=== PATIENT | male | born 1980 | race Caucasian/White ===

== ENCOUNTER 2016-07-20 19:11 | Emergency (ER) | payer SELFPAY ==
[2016-07-20 19:39] VITALS: BP 110/76
[2016-07-20] MEDS ORDERED: Tetanus-Diphtheria* SYRINGE IM ONE (19:40)
--- NOTE | 2016-07-20 19:46 | UC ---
Laceration HPI - HPI Summary HPI Summary: While using edge grinder machine at home tonight, edge grinder machine slipped and cut L hand on 5th finger and at base of finger. - History Of Current Complaint Chief Complaint: UCLaceration Stated Complaint: HAND LAC Time Seen by Provider: 07/20/16 19:33 Hx Obtained From: Patient Laceration Location: Hand Mechanism Of Injury: Sharp Trauma Severity: Mild - Allergies/Home Medications Allergies/Adverse Reactions: Allergies Allergy/AdvReac Type Severity Reaction Status Date / Time No Known Allergies Allergy Verified 07/20/16 19:37 Home Medications: Home Medications NK [No Home Medications Reported] 07/20/16 [History Confirmed 07/20/16] PMH/Surg Hx/FS Hx/Imm Hx Previously Healthy: Yes Cardiovascular History Of: Denies: Cardiac Disorders, Hypertension - Surgical History Surgical History: None - Family History Known Family History: Negative: Renal Disease - Social History Occupation: Employed Full-time Alcohol Use: None Substance Use Type: None Smoking Status (MU): Never Smoked Tobacco Review of Systems Constitutional: Negative Skin: Other - L hand lac and abrasions Eyes: Negative ENT: Negative Respiratory: Negative Cardiovascular: Negative Gastrointestinal: Negative Genitourinary: Negative Motor: Negative Neurovascular: Negative Musculoskeletal: Negative Neurological: Negative Psychological: Negative All Other Systems Reviewed And Are Negative: Yes Physical Exam Triage Information Reviewed: Yes Appearance: Well-Appearing, No Pain Distress, Well-Nourished Vital Signs: Initial Vital Signs Temp 97.0 F 07/20/16 19:34 Pulse 65 07/20/16 19:34 Resp 16 07/20/16 19:34 BP 110/76 07/20/16 19:34 Pulse Ox 100 07/20/16 19:34 Vital Signs Reviewed: Yes Eye Exam: Normal Eyes: Positive: Conjunctiva Clear ENT Exam: Normal ENT: Positive: Normal ENT inspection, Hearing grossly normal, Pharynx normal, TMs normal Dental Exam: Normal Neck exam: Normal Neck: Positive: Supple, Nontender, No Lymphadenopathy Respiratory Exam: Normal Respiratory: Positive: Chest non-tender, Lungs clear, Normal breath sounds, No respiratory distress, No accessory muscle use, Respiratory distress Cardiovascular Exam: Normal Cardiovascular: Positive: RRR, No Murmur Abdominal Exam: Normal Musculoskeletal Exam: Normal Neurological Exam: Normal Psychological Exam: Normal Skin Exam: Other - linear abrasions to L 5th finger at PIP and DIP joints on palmar aspect, 1.25cm laceration L palm at base of 5th finger Laceration Repair - Laceration Repair 1 Description: Irregular Laceration Size After Repair: Length (cm) - 1.5, Width (mm) - 0, Depth (mm) - 0 Modified For Repair: No Type Injection: Local Anesthesia Used: 1.0% Lido - 2mL Cleansing Completed Via Routine Prep: Yes Irrigation With Pressure Irrigation Device: Yes Closure Material: Sutures Closure Method: Single Layer Suture Of: Skin - #3 5-0 nylon Suture Type: Nylon Laceration Course/Dx - Differential Dx - Laceration/Wound Provider Diagnoses: abrasions to L 5th finger. laceration to L 5th finger Discharge - Discharge Plan Condition: Stable Disposition: HOME Patient Education Materials: Finger Laceration (ED) Additional Instructions: When you return to work, please keep the are well padded and protected from rubbing or water/solvent exposure. Come back in 9 days for suture removal. Come back sooner if you have redness, drainage, or other signs of infection.
[2016-07-20] MEDS ORDERED: Lidocaine 1% MPF* 2 ML VIAL INJ ONE (19:55)
[2016-07-20] MEDS ORDERED: Tetanus-Diptheria Toxoids* 0.5 ML SYRINGE ONE (20:13)
--- NOTE | 2016-07-21 17:56 | UC ---
Progress - Progress Note Progress Note: progress example test
== END 2016-07-20 20:43 | disposition home or self-care (01) ==
LOC: UCEAST 19:11
DX: S61.217A Laceration without foreign body of left little finger without damage to nail, initial encounter (principal); S60.417A Abrasion of left little finger, initial encounter; W29.8XXA Contact with other powered hand tools and household machinery, initial encounter; Y93.9 Activity, unspecified; Y92.009 Unspecified place in unspecified non-institutional (private) residence as the place of occurrence of the external cause
CPT/HCPCS: 12001; 96372; 99201; G0463

== ENCOUNTER 2016-09-12 23:14 | Emergency (ER) | payer MEDICAID ==
[2016-09-12] MEDS ORDERED: methylPREDNISolone 125 MG* 2 ML VIAL IV ONE ×2 (23:24)
[2016-09-12] MEDS ORDERED: NS 0.9% 1000 ML* 1,000 ML IV ONE ×2 (23:24)
[2016-09-12] MEDS ORDERED: diPHENhydraMINE IV* 50 MG/ML 1 ml VIAL (BENADRYL) IV ONE ×2 (23:24)
[2016-09-12] MEDS ORDERED: EPINEPHrine AMP 1 MG/ML IM ONE ×2 (23:24)
[2016-09-12] MEDS ORDERED: Famotidine IV* 10 MG/ML 2 ML (20 mg) IV ONE ×2 (23:24)
[2016-09-12] MEDS ORDERED: Famotidine IV* 10 MG/ML 2 ML (20 mg) ONE ×2 (23:52)
--- NOTE | 2016-09-12 23:55 | ED ---
Kamini Angel Salem, scribed for Pranav Payne MD on 09/12/16 at 2340 . Allergic Reaction/Systemic - HPI Summary HPI Summary: Patient is a 36 y/o M who presents to the ED with allergic reaction to bee sting on left forearm since 40 minutes ago. He states that 20 minutes after being stung he experienced throat tightening and SOB. He reports pain to left forearm, but denies pruritus, CP, or cold like sx. He did not receive an epinephrine or any treatment [employer]. Pt states that he was only stung once. He has a hx of allergy to bee sting. Pt denies tobacco or EtOH use. - History of Current Complaint Chief Complaint: EDAllergicReaction Time Seen by Provider: 09/12/16 23:24 Hx Obtained From: Patient Onset/Duration: Gradual Onset, Started minutes ago, Still Present Timing: Constant, Lasting Minutes Severity Initially: Moderate Severity Currently: Moderate Pain Intensity: 0 Pain Scale Used: 0-10 Numeric Location: Discrete @ - LUE. Character: Swelling Aggravating Factor(s): Nothing Alleviating Factor(s): Nothing Associated Signs And Symptoms: Positive: Throat Tightening, Other: - SOB. - Allergies/Home Medications Allergies/Adverse Reactions: Allergies Allergy/AdvReac Type Severity Reaction Status Date / Time Bee Venom Allergy Intermediate Swelling Verified 09/12/16 23:29 Of Face,Lips,& Throat PMH/Surg Hx/FS Hx/Imm Hx Previously Healthy: Yes Cardiovascular History: Denies: Hx Hypertension Infectious Disease History: No Infectious Disease History: Denies: History Other Infectious Disease, Traveled Outside the [place] in Last 30 Days - Family History Known Family History: Negative: Hypertension, Renal Disease - Social History Alcohol Use: None Hx Substance Use: No Substance Use Type: Reports: None Hx Tobacco Use: No Smoking Status (MU): Never Smoked Tobacco Review of Systems Positive: Other - Throat tightening. Negative: Chest Pain Positive: Shortness Of Breath, Other - No cold like sx. Positive: Other - Pain to left forearm. Skin: Other - No pruritus. All Other Systems Reviewed And Are Negative: Yes Physical Exam - Summary Physical Exam Summary: The patient is well-nourished in no acute distress and in no acute pain. The skin is warm and dry and skin color reflects adequate perfusion. Large area of erythema, volar surface. Appears like localized allergic reaction. HEENT: The head is normocephalic and atraumatic. The pupils are equal and reactive. The conjunctivae are clear and without drainage. Nares are patent and without drainage. Mouth reveals moist mucous membranes and the throat is without erythema and exudate. The external ears are intact. The ear canals are patent and without drainage. The tympanic membranes are intact. Neck is supple with full range of motion and non-tender. There are no carotid bruits. There is no neck vein distension. Respiratory: Chest is non-tender. Lungs are clear to auscultation and breath sounds are symmetrical and equal. No stridor or wheezing. Cardiovascular: Heart is regular rate and rhythm. There is no murmur or rales or rub auscultated. T Abdomen: The abdomen is soft and non-tender. Musculoskeletal: There is no back pain noted. Extremities are non-tender with full range of motion. There is good capillary refill. Neurological: Patient is alert and oriented to person, place and time. The patient has symmetrical motor strength in all four extremities. Psychiatric: The patient has an appropriate affect and does not exhibit any anxiety or depression. Triage Information Reviewed: Yes Vital Signs On Initial Exam: Initial Vitals Temp Pulse Resp BP Pulse Ox 97.5 F 60 16 113/72 100 09/12/16 23:16 09/12/16 23:16 09/12/16 23:16 09/12/16 23:16 09/12/16 23:16 Vital Signs Reviewed: Yes Diagnostics - Vital Signs Vital Signs Temp Pulse Resp BP Pulse Ox 09/12/16 23:16 97.5 F 60 16 113/72 100 - Laboratory Lab Statement: Any lab studies that have been ordered have been reviewed, and results considered in the medical decision making process. Allergic Reaction Course/Dx - Course Course Of Treatment: 36 y/o M presents with allergic reaction to bee sting on left forearm since 40 minutes ago. He reports throat tightening, SOB, pain to left forearm, but denies pruritus, CP, or cold like sx. Pt received epinephrine , Pepcid, fluids, Benadryl, and Solu-MEDROL in the ED course. Pt will be observed and then DCd with instructions. - Diagnoses Differential Diagnosis/HQI/PQRI: Positive: Anaphylaxis, Local Allergic Reaction Provider Diagnoses: Allergic reaction to bee sting Discharge - Discharge Plan Condition: Stable Disposition: HOME Prescriptions: Epinephrine [Epipen 2-Immanuel] 0.3 mg IM ONCE #1 inj Famotidine TAB 40 MG(NF) [Pepcid TAB 40 MG(NF)] 40 mg PO DAILY #30 tab diPHENhydraMINE PO* [Benadryl PO 50 MG CAP*] 50 mg PO Q6H PRN #30 cap PRN Reason: allergic reaction predniSONE TAB* [Deltasone TAB*] 60 mg PO DAILY #15 tab Patient Education Materials: General Allergic Reaction (ED) Referrals: [facility] PHYSICIAN REFERRAL [Outside] Additional Instructions: Please follow up with [facility] referral. The documentation as recorded by the Kamini roman Salem accurately reflects the service I personally performed and the decisions made by , Pranav Payne MD.
[2016-09-13 01:58] VITALS: BP 122/69
== END 2016-09-13 01:55 | disposition home or self-care (01) ==
LOC: ED 23:14
DX: T63.441A Toxic effect of venom of bees, accidental (unintentional), initial encounter (principal); R06.02 Shortness of breath; M79.632 Pain in left forearm; Y92.9 Unspecified place or not applicable
CPT/HCPCS: 96374; 96375; 99282; J0171; J1200; J2930

== ENCOUNTER 2017-09-15 20:05 | Emergency (ER) | payer BC, MEDICAID ==
[2017-09-15 20:23] VITALS: BP 128/63
[2017-09-15] MEDS ORDERED: NS 0.9% 1000 ML* 1,000 ML BOLUS ONE (20:33)
[2017-09-15] MEDS ORDERED: Ondansetron INJ* 2 MG/ML VIAL IV ONE (20:33)
--- NOTE | 2017-09-15 20:42 | UC ---
Abdominal Pain Male HPI - HPI Summary HPI Summary: 37 yo male with the onset of abd pain 5 days ago diffuse and crampy nausea but no vomiting soft stool 2-3 days ago developed fever and chills myalgias/headache anorexia decreased UOP onset while working at [employer] - History of Current Complaint Chief Complaint: UCAbdominalPain Stated Complaint: ABD PAIN,FEVER,CHILLS Time Seen by Provider: 09/15/17 20:25 Hx Obtained From: Patient Onset/Duration: Gradual Onset, Lasting Days Timing: Constant Severity Initially: Mild Severity Currently: Moderate Pain Intensity: 7 Pain Scale Used: 0-10 Numeric Location: Diffuse Character: Colicy, Cramping Aggravating Factor(s): Nothing Alleviating Factor(s): Nothing Associated Signs And Symptoms: Positive: Fever, Nausea - Allergies/Home Medications Allergies/Adverse Reactions: Allergies Allergy/AdvReac Type Severity Reaction Status Date / Time bee venom protein (honey bee) Allergy Swelling Verified 09/15/17 20:24 gluten Allergy GI Upset Verified 09/15/17 20:24 Pertussis Vaccines Allergy Rash Verified 09/15/17 20:24 Home Medications: Home Medications Ibuprofen [Advil] 800 mg PO Q8H PRN 09/15/17 [History Confirmed 09/15/17] Sennosides [Ex-Lax] 15 mg PO DAILY PRN 09/15/17 [History Confirmed 09/15/17] PMH/Surg Hx/FS Hx/Imm Hx Previously Healthy: Yes - Surgical History Surgical History: None Surgery Procedure, Year, and Place: R knee pattelar realignment 2004 - Family History Known Family History: Negative: Hypertension, Renal Disease - Social History Alcohol Use: None Substance Use Type: None Smoking Status (MU): Never Smoked Tobacco Review of Systems Constitutional: Fever, Chills Skin: Negative Eyes: Negative ENT: Negative Respiratory: Negative Cardiovascular: Negative Gastrointestinal: Nausea Genitourinary: Negative Motor: Negative Neurovascular: Negative Musculoskeletal: Arthralgia Neurological: Headache Psychological: Negative Is Patient Immunocompromised?: No All Other Systems Reviewed And Are Negative: Yes Physical Exam Triage Information Reviewed: Yes Appearance: Well-Appearing, No Pain Distress, Well-Nourished Vital Signs: Initial Vital Signs Temp 102.8 F 09/15/17 20:14 Pulse 117 09/15/17 20:14 Resp 18 09/15/17 20:14 BP 128/63 09/15/17 20:14 Pulse Ox 100 09/15/17 20:14 Vital Signs Reviewed: Yes Eyes: Negative: Conjunctiva Clear ENT: Positive: Hearing grossly normal, Pharynx normal. Negative: Nasal congestion, Nasal drainage, Tonsillar exudate, Trismus, Hoarse voice, Uvula midline Neck: Positive: Supple, Nontender, No Lymphadenopathy Respiratory: Positive: Lungs clear, Normal breath sounds, No respiratory distress Cardiovascular: Positive: RRR, No Murmur Abdomen Description: Negative: Nontender - diffusely tender, CVA Tenderness (R) , CVA Tenderness (L), Distended, Guarding, Hepatomegaly, Peritoneal Signs, Pulsatile Mass, Splenomegaly Bowel Sounds: Positive: Present Musculoskeletal: Positive: ROM Intact, No Edema Neurological: Positive: Alert Psychological Exam: Normal Skin Exam: Normal Re-Evaluation - Re-Evaluation First Eval Re-Evaluation Time: 21:30 Change: Improved Comment: still diffusely tender, more so RLQ Abd Pain Male Course/Dx - Differential Dx/Clinical Impression Provider Diagnoses: RLQ abd pain Discharge - Sign-Out/Discharge Documenting (check all that apply): Discharge/Admit/Transfer - Discharge Plan Condition: Stable Disposition: TRANS HIGHER LVL OF CARE FAC Patient Education Materials: Abdominal Pain (ED) Forms: *Work Release Referrals: No Primary Care Phys,NOPCP [Primary Care Provider] - Additional Instructions: I suggest you go to the ER straight from here for evaluation of your abdominal pain and fever You are most tender over your appendix Don't eat or drink - Billing Disposition and Condition Condition: STABLE Disposition: Trans Higher Lvl of Care Fac
== END 2017-09-15 21:40 | disposition short-term general hospital (02) ==
LOC: UCEAST 20:05
DX: R10.31 Right lower quadrant pain (principal); R11.0 Nausea; Z91.030 Bee allergy status; Z91.018 Allergy to other foods; Z88.7 Allergy status to serum and vaccine
CPT/HCPCS: 96360; 96374; 99212; G0463; J2405

== ENCOUNTER 2017-09-15 21:59 | Emergency (ER) | payer BC ==
[2017-09-15] MEDS ORDERED: NS 0.9% 1000 ML* 1,000 ML IV ONE (22:27)
[2017-09-15 22:42] LABS: Hematocrit 43 % (42-52); Hemoglobin 14.3 g/dl (14.0-18.0); Mean Corpuscular HGB Conc 34 g/dl (31-36); Mean Corpuscular Hemoglobin 29 pg (27-31); Mean Corpuscular Volume 87 fL (80-94); Mean Platelet Volume 9.9 um3 (7.4-10.4); Platelet Count 159 10^3/ul (150-450); Red Blood Count 4.91 10^6/ul (4.00-5.40); Red Cell Distribution Width 13 % (10.5-15); White Blood Count 9.3 10^3/ul (3.5-10.8)
[2017-09-15 22:45] LABS: ABS Basophils 0 10^3/ul (0-0.2); ABS Eosinophils 0 10^3/ul (0-0.6); ABS Lymphocytes 0.6 10^3/ul (1.0-4.8); ABS Neutrophils 7.7 10^3/ul (1.5-7.7); ABS Nucleated RBC 0 10^3/ul
--- NOTE | 2017-09-15 22:52 | ED ---
Abdominal Pain/Male - HPI Summary HPI Summary: Patient sent from urgent care to ED for further evaluation of constant right lower quadrant pain 1 week with associated nausea, fever, chills, body aches, WALSH, decreased appetite, soft stools for the past 3 days. Denies history of WALSH. WALSH is frontal bilaterally, constant. Abdominal pain described as constant with intermittent spikes, diffuse over right side but worse in right lower quadrant. Denies neck stiffness, focal deficits, recent tick bite, cough, sore throat, SOB, CP, V/D, change in urine. Medical history is hypoglycemia with associated syncope, gluten sensitivity. Abdominal/pelvic surgical history is none. - History of Current Complaint Chief Complaint: EDAbdPain Stated Complaint: ABD PAIN/FEVER/NAUSEA Time Seen by Provider: 09/15/17 22:16 Hx Obtained From: Patient Onset/Duration: Gradual Onset Timing: Constant Severity Initially: Mild Severity Currently: Moderate Pain Intensity: 6 Pain Scale Used: 0-10 Numeric Location: Diffuse, Discrete At: RLQ Radiates: No Associated Signs And Symptoms: Positive: Fever, Decreased Appetite, Nausea - Allergies/Home Medications Allergies/Adverse Reactions: Allergies Allergy/AdvReac Type Severity Reaction Status Date / Time bee venom protein (honey bee) Allergy Swelling Verified 09/15/17 22:03 gluten Allergy GI Upset Verified 09/15/17 22:03 Pertussis Vaccines Allergy Rash Verified 09/15/17 22:03 PMH/Surg Hx/FS Hx/Imm Hx Endocrine/Hematology History: Denies: Hx Anticoagulant Therapy Cardiovascular History: Denies: Hx Hypertension History: Denies: Hx Dialysis Neurological History: Denies: Hx CVA - Surgical History Surgery Procedure, Year, and Place: R knee pattelar realignment 2004 Infectious Disease History: No Infectious Disease History: Denies: History Other Infectious Disease, Traveled Outside the [place] in Last 30 Days - Family History Known Family History: Negative: Hypertension, Renal Disease - Social History Alcohol Use: None Hx Substance Use: No Substance Use Type: Reports: None Hx Tobacco Use: No Smoking Status (MU): Never Smoked Tobacco Review of Systems Positive: Fever, Chills Eyes: Negative ENT: Negative Cardiovascular: Negative Respiratory: Negative Positive: Abdominal Pain, Nausea Genitourinary: Negative Positive: Myalgia Skin: Negative Positive: Headache Psychological: Normal All Other Systems Reviewed And Are Negative: Yes Physical Exam - Summary Physical Exam Summary: Abdomen diffusely tender. Positive Sprague's. Positive McBurney's point. Tenderness worse at right lower quadrant. No guarding or peritoneal signs. Triage Information Reviewed: Yes Vital Signs On Initial Exam: Initial Vitals Temp Pulse Resp BP Pulse Ox 100.1 F 102 18 123/68 99 09/15/17 22:01 09/15/17 22:01 09/15/17 22:01 09/15/17 22:01 09/15/17 22:01 Vital Signs Reviewed: Yes Appearance: Positive: Well-Appearing Skin: Positive: Warm Head/Face: Positive: Normal Head/Face Inspection Eyes: Positive: Normal Neck: Positive: Supple Respiratory/Lung Sounds: Positive: Clear to Auscultation Cardiovascular: Positive: Normal Abdomen Description: Negative: Distended, Guarding, Peritoneal Signs Musculoskeletal: Positive: Normal Neurological: Positive: Normal Psychiatric: Positive: Normal AVPU Assessment: Alert - Crescent Coma Scale Best Eye Response: 4 - Spontaneous Best Motor Response: 6 - Obeys Commands Best Verbal Response: 5 - Oriented Coma Scale Total: 15 Diagnostics - Vital Signs Vital Signs Temp Pulse Resp BP Pulse Ox 09/15/17 22:01 100.1 F 102 18 123/68 99 - Laboratory Lab Results: Lab Results 09/15/17 Range/Units 22:37 WBC 9.3 (3.5-10.8) 10^3/ul RBC 4.91 (4.00-5.40) 10^6/ul Hgb 14.3 (14.0-18.0) g/dl Hct 43 (42-52) % MCV 87 (80-94) fL MCH 29 (27-31) pg MCHC 34 (31-36) g/dl RDW 13 (10.5-15) % Plt Count 159 (150-450) 10^3/ul MPV 9.9 (7.4-10.4) um3 Neut % (Auto) Not Reportable Lymph % (Auto) Not Reportable Churchill % (Auto) Not Reportable Eos % (Auto) Not Reportable Baso % (Auto) Not Reportable Absolute Neuts (auto) 7.7 (1.5-7.7) 10^3/ul Absolute Lymphs (auto) 0.6 L (1.0-4.8) 10^3/ul Absolute Monos (auto) 1.0 H (0-0.8) 10^3/ul Absolute Eos (auto) 0 (0-0.6) 10^3/ul Absolute Basos (auto) 0 (0-0.2) 10^3/ul Absolute Nucleated RBC 0 10^3/ul Neutrophils % Pending Nucleated RBC % Not Reportable Normal RBC Morphology Pending Result Diagrams: 09/15/17 22:37 09/15/17 22:37 Lab Statement: Any lab studies that have been ordered have been reviewed, and results considered in the medical decision making process. - CT ab/pel with CT Interpretation: Positive (See Comments) - Mesenteric adenitis CT Interpretation Completed By: Radiologist Re-Evaluation - Re-Evaluation 1 Re-Evaluation Time: 22:56 Comment: BGL 99. Patient refused pain medication. 2 Re-Evaluation Time: 02:52 Comment: BP stable. Fever decreasing. Heart rate decreasing. Patient ready to go home. Abdominal Pain Fem Course/Dx - Course Course Of Treatment: Patient sent from urgent care to ED for further evaluation of constant right lower quadrant pain 1 week with associated nausea, fever, chills, body aches, WALSH, decreased appetite, soft stools for the past 3 days. Denies history of WALSH. WALSH is frontal bilaterally, constant. Abdominal pain described as constant with intermittent spikes, diffuse over right side but worse in right lower quadrant. Denies neck stiffness, focal deficits, recent tick bite, cough, sore throat, SOB, CP, V/D, change in urine. Medical history is hypoglycemia with associated syncope, gluten sensitivity. Abdominal/pelvic surgical history is none. Abdomen diffusely tender. Positive Sprague's. Positive McBurney's point. Tenderness worse at right lower quadrant. No guarding or peritoneal signs. Fever improving with Tylenol. Heart rate improving with fluids and Tylenol. Discussed patient with Dr. Barrett hospitalist who recommended d/c home as patient's vital signs are improving and thus admission based on SIRS criteria becomes less indicated. White count, lactic acid within normal limits. CT positive for mesenteric adenitis. RX for Levaquin to cover bacterial infection as there is no pcp on file. Patient understands and agrees with plan - Diagnoses Provider Diagnoses: Mesenteric adenitis Discharge - Sign-Out/Discharge Documenting (check all that apply): Discharge/Admit/Transfer - Discharge Plan Condition: Stable Disposition: HOME Prescriptions: Levofloxacin TAB* [Levaquin TAB*] 500 mg PO DAILY 7 Days #7 tab Promethazine TAB* [Phenergan TAB*] 25 mg PO Q8H PRN 5 Days #15 tab PRN Reason: Nausea Patient Education Materials: Mesenteric Adenitis (ED) Forms: *Work Release Referrals: No Primary Care Phys,NOPCP [Primary Care Provider] - [facility] [Outside] Additional Instructions: Tylenol or ibuprofen for fever control and body aches. Plenty of fluids for hydration. Follow-up with primary care. Return to the ED for any new or worsening symptoms - Billing Disposition and Condition Condition: STABLE Disposition: Home
[2017-09-15 23:04] LABS: Monocytes % 4 % (0-7)
[2017-09-15 23:06] LABS: EGFR Non-African American 62.1 (>60)
[2017-09-15 23:29] LABS: Urine Appearance Clear; Urine Blood Negative (Negative); Urine Color Yellow; Urine Ketones Negative (Negative); Urine Protein Negative (Negative); Urine Specific Gravity 1.016 (1.010-1.030); Urine Urobilinogen Negative (Negative)
[2017-09-16] MEDS ORDERED: Iohexol 300* (CONTRAST) 10 ML SDV IV ONE (00:32)
[2017-09-16] MEDS ORDERED: Acetaminophen TAB* 325 MG PO ONE (01:04)
[2017-09-16] MEDS ORDERED: NS 0.9% 1000 ML* 1,000 ML IV ONE (01:05)
[2017-09-16] MEDS ORDERED: Levofloxacin TAB* 500 MG PO ONE (03:09)
[2017-09-16] MEDS ORDERED: Ibuprofen TAB* 600 MG PO ONE (03:10)
[2017-09-16 03:31] VITALS: BP 116/70
--- NOTE | 2017-09-16 09:07 | RAD ---
Indication: Abdominal pain. Contrast: Administered 100.1 ml of OMNIPAQUE 300 mg/ml CT of the abdomen and pelvis was performed after IV contrast administration. Coronal and sagittal reconstructed images were obtained. Lung bases demonstrate no pleural fluid, nodules or masses. Heart is of normal size without evidence of pericardial effusion. Liver is normal in size. No focal lesions or intrahepatic ductal dilatation is noted. Gallbladder demonstrates no calcified gallstones. No pericholecystic fluid or wall thickening is noted. The spleen is normal in size. Pancreas demonstrates no mass or pancreatic duct dilatation. The common duct is not dilated. No adrenal lesions are noted. The kidneys demonstrate symmetric nephrograms without hydronephrosis. No retroperitoneal lymphadenopathy is noted. No dilated loops of bowel are noted. No evidence of dilated loops of bowel are noted. The colon is filled with stool. Urinary bladder is unremarkable. The appendix appears normal with air within it. Mesenteric lymph nodes are noted at the root of the mesentery. These measure up to 10 mm IMPRESSION: Normal appendix. Moderate amount of subcentimeter nodes of the mesentery which may represent mesenteric guidance. No bowel obstruction is identified.
== END 2017-09-16 03:38 | disposition home or self-care (01) ==
LOC: ED 21:59
DX: I88.0 Nonspecific mesenteric lymphadenitis (principal); R10.31 Right lower quadrant pain; R11.0 Nausea; R50.9 Fever, unspecified; R51 Headache; Z91.030 Bee allergy status
CPT/HCPCS: 36415; 74177; 80053; 81003; 83605; 83690; 85025; 85060; 86140; 87040; 96374; 99283; A9270-GY; Q9967

== ENCOUNTER 2017-09-17 12:12 | Emergency (ER) | payer BC ==
[2017-09-17] MEDS ORDERED: NS 0.9% 1000 ML* 1,000 ML IV ONE (12:26)
[2017-09-17 13:19] LABS: ABS Basophils 0 10^3/ul (0-0.2); ABS Eosinophils 0.2 10^3/ul (0-0.6); ABS Lymphocytes 0.8 10^3/ul (1.0-4.8); ABS Monocytes 0.9 10^3/ul (0-0.8); ABS Neutrophils 3.6 10^3/ul (1.5-7.7); ABS Nucleated RBC 0 10^3/ul; Hematocrit 40 % (42-52); Hemoglobin 13.5 g/dl (14.0-18.0); Lymphocyte % 14.8 % (25-47); Mean Corpuscular HGB Conc 34 g/dl (31-36); Mean Corpuscular Hemoglobin 29 pg (27-31); Mean Corpuscular Volume 86 fL (80-94); Mean Platelet Volume 9.2 um3 (7.4-10.4); Nucleated Red Blood Cells % 0; Platelet Count 146 10^3/ul (150-450); Red Blood Count 4.67 10^6/ul (4.00-5.40); Red Cell Distribution Width 13 % (10.5-15); White Blood Count 5.6 10^3/ul (3.5-10.8)
[2017-09-17 13:36] LABS: EGFR Non-African American 70.1 (>60)
[2017-09-17 15:10] VITALS: BP 118/83
--- NOTE | 2017-09-17 15:58 | ED ---
Shantel Angel SooYoung, scribed for Armani Cervantes MD on 09/17/17 at 1305 . 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 Associated sx: ongoing diarrhea for three days, gassy, bloated, fatigue, lightheadedness. Denies rhinorheea, sore throat, fever, chills. Pt states his abd pain from two days ago has resolved. Pt's CT from showed enlarged lymph nodes near appendix. Pt is taking Levoquin. - History of Current Complaint Chief Complaint: EDAbdPain Time Seen by Provider: 09/17/17 12:56 Stated Complaint: RECTAL BLEEDING Hx Obtained From: Patient Onset/Duration: Still Present Timing: Intermittent Severity: Moderate Current Severity: Moderate Pain Intensity: 4 Associated Signs and Symptoms: Positive: Diarrhea, Lightheadedness, Other: - pos : gassy, bloated, fatigue; neg: rhinorrhea, sore throat. Negative: Fever, Chills, Abdominal Pain - Allergy/Home Medications Allergies/Adverse Reactions: Allergies Allergy/AdvReac Type Severity Reaction Status Date / Time bee venom protein (honey bee) Allergy Swelling Verified 09/17/17 13:33 gluten Allergy GI Upset Verified 09/17/17 13:33 Pertussis Vaccines Allergy Rash Verified 09/17/17 13:33 PMH/Surg Hx/FS Hx/Imm Hx Previously Healthy: Yes Endocrine/Hematology History: Denies: Hx Anticoagulant Therapy, Hx Diabetes Cardiovascular History: Denies: Hx Hypertension History: Denies: Hx Dialysis, Hx Renal Disease Neurological History: Denies: Hx CVA - Surgical History Surgery Procedure, Year, and Place[facility] Infectious Disease History: No Infectious Disease History: Denies: History Other Infectious Disease, Traveled Outside the [place] in Last 30 Days - Family History Known Family History: Negative: Hypertension, Renal Disease - Social History Occupation: Employed Full-time Lives: With Family Alcohol Use: None Hx Substance Use: No Substance Use Type: Reports: None Hx Tobacco Use: No Smoking Status (MU): Never Smoked Tobacco Review of Systems Positive: Fatigue, Other - lightheadedness. Negative: Fever, Chills Negative: Sore Throat, Nasal Discharge Positive: Diarrhea, Other - gassy, bloated. Negative: Abdominal Pain Positive: other - pos: melena All Other Systems Reviewed And Are Negative: Yes Physical Exam - Summary Physical Exam Summary: General: well-appearing, no pain distress Skin: warm, color reflects adequate perfusion, dry Head: normal Eyes: EOMI, REINA ENT: normal Neck: supple, nontender Respiratory: CTA, breath sounds present Cardiovascular: RRR Abdomen: soft, nontender Bowel: present Musculoskeletal: normal, strength/ROM intact Neurological: sensory/motor intact, A&O x3 Psychological: affect/mood appropriate Triage Information Reviewed: Yes Vital Signs On Initial Exam: Initial Vitals Temp Pulse Resp BP Pulse Ox 98.8 F 78 16 118/77 99 09/17/17 12:15 09/17/17 12:15 09/17/17 12:15 09/17/17 12:15 09/17/17 12:15 Vital Signs Reviewed: Yes Diagnostics - Vital Signs Vital Signs Temp Pulse Resp BP Pulse Ox 09/17/17 13:00 14 09/17/17 12:58 73 15 120/78 100 09/17/17 12:15 98.8 F 78 16 118/77 99 - Laboratory Lab Results: Lab Results 09/17/17 09/17/17 Range/Units 13:10 13:10 WBC 5.6 (3.5-10.8) 10^3/ul RBC 4.67 (4.00-5.40) 10^6/ul Hgb 13.5 L (14.0-18.0) g/dl Hct 40 L (42-52) % MCV 86 (80-94) fL MCH 29 (27-31) pg MCHC 34 (31-36) g/dl RDW 13 (10.5-15) % Plt Count 146 L (150-450) 10^3/ul MPV 9.2 (7.4-10.4) um3 Neut % (Auto) 64.6 (38-83) % Lymph % (Auto) 14.8 L (25-47) % Campbell % (Auto) 16.1 H (0-7) % Eos % (Auto) 4.0 (0-6) % Baso % (Auto) 0.5 (0-2) % Absolute Neuts (auto) 3.6 (1.5-7.7) 10^3/ul Absolute Lymphs (auto) 0.8 L (1.0-4.8) 10^3/ul Absolute Monos (auto) 0.9 H (0-0.8) 10^3/ul Absolute Eos (auto) 0.2 (0-0.6) 10^3/ul Absolute Basos (auto) 0 (0-0.2) 10^3/ul Absolute Nucleated RBC 0 10^3/ul Nucleated RBC % 0 Sodium 137 (135-145) mmol/L Potassium 4.1 (3.5-5.0) mmol/L Chloride 105 (101-111) mmol/L Carbon Dioxide 26 (22-32) mmol/L Anion Gap 6 (2-11) mmol/L BUN 9 (6-24) mg/dL Creatinine 1.17 (0.67-1.17) mg/dL Est GFR ( Amer) 84.9 (>60) Est GFR (Non-Af Amer) 70.1 (>60) BUN/Creatinine Ratio 7.7 L (8-20) Glucose 98 (70-100) mg/dL Calcium 8.9 (8.6-10.3) mg/dL Total Bilirubin 0.60 (0.2-1.0) mg/dL AST 16 (13-39) U/L ALT 14 (7-52) U/L Alkaline Phosphatase 51 (34-104) U/L C-Reactive Protein 117.16 H (<8.01) mg/L Total Protein 6.1 L (6.4-8.9) g/dL Albumin 3.7 (3.2-5.2) g/dL Globulin 2.4 (2-4) g/dL Albumin/Globulin Ratio 1.5 (1-3) Lipase 15 (11.0-82.0) U/L Result Diagrams: 09/17/17 13:10 09/17/17 13:10 Lab Statement: Any lab studies that have been ordered have been reviewed, and results considered in the medical decision making process. Re-Evaluation - Re-Evaluation 1 Re-Evaluation Time: 14:45 Change: Unchanged Comment: Discussing lab results with pt. Pt is without pain, has not had a BM while in ED. GIGU Course/Dx - Course Course Of Treatment: NO ABDOMINAL PAIN. NO BMS SINCE THIS AM. DISCUSSED LABS WITH THE PATIENT. HE IS ON LEVAQUIN PO. SENT HOME WITH STOOL COLLECTION KIT. F/U PMD; RETURN TO ED IF WORSE. - Diagnoses Provider Diagnoses: Bloody diarrhea Discharge - Sign-Out/Discharge Documenting (check all that apply): Discharge/Admit/Transfer - Discharge Plan Condition: Stable Disposition: HOME Referrals: [facility] [Outside] Additional Instructions: FOLLOW UP WITH YOUR DOCTOR FOR YOUR BLOODY DIARRHEA. GET RECHECKED FOR ANY WORSENING OF YOUR CONDITION; PAIN, FEVER, BLOODY STOOLS, YOU FEEL ILL, YOU FEEL LIKE PASSING OUT OR QUESTIONS OR CONCERNS. - Billing Disposition and Condition Condition: STABLE Disposition: Home The documentation as recorded by the Shantel roman SooYoung accurately reflects the service I personally performed and the decisions made by me, Armani Cervantes MD.
== END 2017-09-17 15:11 | disposition home or self-care (01) ==
LOC: ED 12:12
DX: R19.7 Diarrhea, unspecified (principal); Z79.2 Long term (current) use of antibiotics; Z88.7 Allergy status to serum and vaccine; Z88.8 Allergy status to other drugs, medicaments and biological substances
CPT/HCPCS: 36415; 80053; 83690; 85025; 86140; 99283

== ENCOUNTER 2018-05-13 11:30 | Emergency (ER) | payer BC ==
[2018-05-13 11:43] VITALS: BP 115/71
--- NOTE | 2018-05-13 12:05 | UC ---
Lower Extremity/Ankle HPI - HPI Summary HPI Summary: Patient is 38 year old gentleman , who present today to the urgent care with foot pain since yesterday. He reports that he was at work, about 1pm, he dropped a 35 pound pump on his left foot - has pain to left outer foot He has difficulty putting weight on this left side. Denies any other problems - History of Current Complaint Chief Complaint: UCLowerExtremity Stated Complaint: LEFT FOOT PAIN Time Seen by Provider: 05/13/18 11:47 Hx Obtained From: Patient Pain Intensity: 4 - Allergies/Home Medications Allergies/Adverse Reactions: Allergies Allergy/AdvReac Type Severity Reaction Status Date / Time bee venom protein (honey bee) Allergy Swelling Verified 05/13/18 11:43 Pertussis Vaccines Allergy Rash Verified 05/13/18 11:43 gluten AdvReac GI Upset Verified 05/13/18 11:43 Home Medications: Home Medications EPINEPHrine [Epipen 2-Immanuel] 0.3 mg IM ONCE PRN 05/13/18 [History Confirmed ] Ibuprofen TAB* [Advil TAB*] 800 mg PO ONCE PRN 05/13/18 [History Confirmed 05/13] PMH/Surg Hx/FS Hx/Imm Hx - Additional Past Medical History Additional PMH: Gluten sensitivity Previously Healthy: Yes Other History Of: Negative For: Anticoagulant Therapy - Surgical History Surgical History: Yes Surgery Procedure, Year, and Place: R knee pattelar realignment 2004 - Family History Known Family History: Negative: Hypertension, Renal Disease - Social History Alcohol Use: None Substance Use Type: None Smoking Status (MU): Never Smoked Tobacco Review of Systems All Other Systems Reviewed And Are Negative: Yes Constitutional: Positive: Negative Skin: Positive: Negative Eyes: Positive: Negative ENT: Positive: Negative Respiratory: Positive: Negative Cardiovascular: Positive: Negative Gastrointestinal: Positive: Negative Genitourinary: Positive: Negative Motor: Positive: Negative Neurovascular: Positive: Negative Musculoskeletal: Positive: Arthralgia - Left foot, Edema - Left dorsal foot Neurological: Positive: Negative Psychological: Positive: Negative Is Patient Immunocompromised?: No Physical Exam - Summary Physical Exam Summary: Physical Exam: Const: Appears well. No signs of apparent distress present. Alert and oriented x 3. Musculo: Walks with an antalgic gait. Head/Face: Atraumatic, normocephalic on inspection. Eyes: EOMI and PERRLA in both eyes. Conjunctivae clear. No discharge noted ENT: Hearing normal, CVS: Regular rate and Rhythm, S1S2 normal , no murmurs identified. Extremities: Peripheral circulation is grossly normal. Pulses 2+ Abdomen : Soft non tender Skin: No lesions or rash located on the upper extremities or on the lower extremities. Neuro: Cranial nerves II to XII intact, motor and sensory intact. DTR Intact bilaterally. Mood is normal. Affect is normal. Left ankle and foot : Ankle: negative for bruising, swelling or tenderness to palpation. It has full ROM, strength and stability. Left foot: Insp/Palp: Swelling and bruising is noted on the dorsum of the foot Strength: 5/5 Skin: No scars, rashes, lesions or ecchymosis. 2+ posterior tibial and dorsalis pedis pulse bilaterally. Neuro: Sensation to light touch is intact in the lower extremities bilaterally. Coordination normal. Triage Information Reviewed: Yes Vital Signs: Initial Vital Signs Temp 98.5 F 05/13/18 11:40 Pulse 71 05/13/18 11:40 Resp 14 05/13/18 11:40 BP 115/71 05/13/18 11:40 Pulse Ox 98 05/13/18 11:40 Vital Signs Reviewed: Yes Diagnostics - Radiology No standard instances Radiology Interpretation Completed By: Radiologist - Left foot x-ray: NO EVIDENCE FOR FRACTURE. Lower Extremity Course/Dx - Course Course Of Treatment: During the visit today, we obtained x-ray of the left foot : IMPRESSION: NO EVIDENCE FOR FRACTURE. His symptoms are consistent with left foot contusion. We discussed the findings and further plan. Patient expressed understanding . - Differential Dx/Diagnosis Provider Diagnosis: Contusion of left foot Discharge - Sign-Out/Discharge Documenting (check all that apply): Patient Departure All imaging exams completed and their final reports reviewed: Yes - Discharge Plan Condition: Stable Disposition: HOME Patient Education Materials: Foot Contusion (ED) Forms: *Work Release Referrals: Raisa Nagel MD [Primary Care Provider] - 2 Weeks Josephine Schaefer MD [Medical Doctor] - 1 Week Additional Instructions: Ibuprofen as needed for pain control and swelling. Continue crutches for now and been off as tolerated to full weightbearing Ice 15 minutes at a time, 3-4 times a day Work excuse for the next 2 weeks. Follow up with orthopedics if no better in one week. Follow-up with primary care physician in 2 weeks if needed Return to Urgent care / ER if symptoms get worse. - Billing Disposition and Condition Condition: STABLE Disposition: Home
== END 2018-05-13 13:05 | disposition home or self-care (01) ==
LOC: UCEAST 11:30
DX: S90.32XA Contusion of left foot, initial encounter (principal); Z91.09 Other allergy status, other than to drugs and biological substances; Z91.030 Bee allergy status; Z88.7 Allergy status to serum and vaccine; W20.8XXA Other cause of strike by thrown, projected or falling object, initial encounter; Y92.9 Unspecified place or not applicable; Y99.0 Civilian activity done for income or pay
CPT/HCPCS: 99213; G0463

== ENCOUNTER 2018-11-23 14:06 | Emergency (ER) | payer BC ==
--- OUTSIDE RECORDS SUMMARY | 2018-11-23 14:11 | XMS REPORT | Continuity of Care Document ---
:1980 External Reference #:[id number] Author Name RAMO Stone Address [address] [place] [address] Care Team Providers Name Role Phone Raisa Nagel M.D. 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 Problems Description No Information Available Social History Type Date Description Comments Sex Unknown Tobacco Use Start: Unknown Never Smoked Cigarettes ETOH Use Never used alcohol Recreational Drug Use Never Used Drugs Exercise Type/Frequency Exercises sporadically walking, weight training Allergies, Adverse Reactions, Alerts Active Allergies Reaction Severity Comments Date Pertussis as a baby 09/27/2018 Bee Sting 09/27/2018 Gluten 09/27/2018 Medications Active Medications SIG Qnty Indications Ordering Provider Date Orphenadrine Citrate take 1 tablet 60tabs M62.838 Mack Lizarraga, 2018 ER every 12 hours M.D. 100mg Tablets ER 12HR for muscle pain. History Medications No Active Medications Unknown 09/27/2018 - 11/20/2018 Medications Administered in Office Medication SIG Qnty Indications Ordering Provider Date Injection Subcutaneous Or RAMO Stone 11/20/2018 Intramuscular Injection Immunizations Description No Information Available Vital Signs Date Vital Result Comment 11/20/2018 3:35pm BP Systolic 100 mmHg BP Diastolic 74 mmHg Heart Rate 80 /min Body Temperature 98.2 F Respiratory Rate 14 /min Height 72 inches 6'0" Weight 206.00 lb BMI (Body Mass Index) 27.9 kg/m2 09/27/2018 9:48am BP Systolic 100 mmHg BP Diastolic 60 mmHg Heart Rate 90 /min Body Temperature 98.1 F Respiratory Rate 16 /min Height 72 inches 6'0" Weight 207.38 lb BMI (Body Mass Index) 28.1 kg/m2 Results Description No Information Available Procedures Date Code Description Status 11/20/2018 79134 Injection Subcutaneous Or Intramuscular Completed Medical Devices Description No Information Available Encounters Type Date Location Provider Dx Diagnosis Office Visit 09/27/2018 [facility] Office Margarita Concepcion M79.674 Pain in right 10:00a [place] toe(s) Assessments Date Code Description Provider 11/20/2018 M62.838 Other muscle spasm RAMO Stone 11/20/2018 M54.2 Cervicalgia RAMO Stone 09/27/2018 M79.674 Pain in right toe(s) Margarita Grove NP Plan of Treatment Future Appointment(s):04/01/2019 10:00 am - RAMO Stone at [facility] Owvpld4311/20/2018 - Debbie Aguirre, PAM62.838 Other muscle spasmNew Medication: Orphenadrine Citrate ER 100 mg - take 1 tablet every 12 hours for muscle pain.Comments:You were given an injection of Ketorolac today. Start ibuprofen again tomorrow. Start muscle relaxerevery 12 hours as needed. No work for the next several days to allow neck muscles to relax, gentle stretching and exercises. Call with any concerns or questions or if symptoms don't improve in the nextfew days.M54.2 CervicalgiaAllComments:PCMHMedication Management Patient Understands medications he's taking? Yes Are there Barriers to Adherence? No Has the patient been asked about herbal supplements and therapies, and OTC meds? Yes Care Plan1. Patient has been queried about patient's goals/preferences and functional/lifestyle goals at relevant visits. Yes If relevant, describe: N/A2. Treatment goals as explained to the patient: above3. Are there barriers to meeting treatment goals? No If Yes , please describe:4. Self-Management goals as described to the patient: Yes As always, we strongly encourage a healthy diet and making physical activity a part of your every day life. If you have questions about how or where to start, please contact the office. Functional Status Description No Information Available Mental Status Description No Information Available Referrals Refer to Reason for Referral Status Appt Date Momo Desai MD right great toe pain jw Scheduled 10/09/[address] [phone]
[2018-11-23 14:13] VITALS: BP 114/73
--- NOTE | 2018-11-23 14:15 | UC ---
Hand/Wrist HPI - HPI Summary HPI Summary: 38 yo male presents with RIGHT ring finger injury. He tells me that he was at work and a pipe crushed the tip of his right ring finger. Sustained a laceration to the nail and pain to the area. Bandaged the area and came to . Tetanus is up to date within the last 2 years per pt - History Of Current Complaint Chief Complaint: UCUpperExtremity Stated Complaint: FINGER LAC Time Seen by Provider: 11/23/18 14:15 Hx Obtained From: Patient Onset/Duration: Sudden Onset Severity Initially: Severe Severity Currently: Severe Pain Intensity: 7 Pain Scale Used: 0-10 Numeric - Allergies/Home Medications Allergies/Adverse Reactions: Allergies Allergy/AdvReac Type Severity Reaction Status Date / Time bee venom protein (honey bee) Allergy Swelling Verified 11/23/18 14:13 Pertussis Vaccines Allergy Rash Verified 11/23/18 14:13 gluten AdvReac GI Upset Verified 11/23/18 14:13 PMH/Surg Hx/FS Hx/Imm Hx - Additional Past Medical History Additional PMH: None Other History Of: Negative For: Anticoagulant Therapy - Surgical History Surgical History: Yes Surgery Procedure, Year, and Place: R knee pattelar realignment 2004 - Family History Known Family History: Negative: Hypertension, Renal Disease - Social History Occupation: Employed Full-time Lives: With Family Alcohol Use: None Substance Use Type: None Smoking Status (MU): Never Smoked Tobacco Review of Systems All Other Systems Reviewed And Are Negative: No Constitutional: Positive: Negative Skin: Positive: Other - Right ring finger crush injury Respiratory: Positive: Negative Cardiovascular: Positive: Negative Neurological: Positive: Negative Psychological: Positive: Negative Physical Exam - Summary Physical Exam Summary: GENERAL: NAD. WDWN. No pain distress. SKIN: See MSK CHEST: No accessory muscle use. Breathing comfortably and in no distress. CV: Pulses intact radial and ulnar. Cap refill <2seconds MSK: RIGHT 4th digit: Nail with horizontal laceration that does not go all the way through. Distal ulnar aspect of nail with vertical laceration that connects to the horizontal section with scant 1mm piece of subcutaneous fat exposed. Nail is not avulsed and is well adhered to the finger. No bony fragments appreciated. FROM at DIP, PIP, and MCP. NEURO: Alert. Sensations intact hand and all fingers. PSYCH: Age appropriate behavior. Triage Information Reviewed: Yes Vital Signs: Initial Vital Signs Temp 98.2 F 11/23/18 14:11 Pulse 64 11/23/18 14:11 Resp 16 11/23/18 14:11 BP 114/73 11/23/18 14:11 Pulse Ox 100 11/23/18 14:11 Vital Signs Reviewed: Yes Diagnostics - Radiology Finger Radiology Interpretation Completed By: Radiologist Summary of Radiographic Findings: IMPRESSION: MINIMALLY IMPACTED FRACTURE ALONG THE VOLAR ASPECT OF THE DISTAL PHALANX IS SUSPECTED. Hand/Wrist Course/Dx - Course Course Of Treatment: XR positive for fracture. Given his nail laceration, this is considered an open fracture. The wound was irrigated copiously with 500mL NS and soaked in saline for 10- 15minutes. I discussed the case with Dr. Brannon of Orthopedics - he recommends irrigation as performed, anbx, and splinting. Wound not amenable to sutures as everything is well approximated at rest. Pt was bandaged with anbx xeroform, telfa, and finger splint. Advised to rest and apply ice. Keep the bandage intact until he sees orthopedics early next week. - Differential Dx/Diagnosis Provider Diagnosis: Open fracture of phalanx of right ring finger Discharge ED - Sign-Out/Discharge Documenting (check all that apply): Patient Departure All imaging exams completed and their final reports reviewed: Yes - Discharge Plan Condition: Stable Disposition: HOME Prescriptions: Cephalexin CAP* [Keflex CAP*] 500 mg PO QID #28 cap Patient Education Materials: Finger Fracture (ED) Forms: *Work Release Referrals: Raisa Nagel MD [Primary Care Provider] - Imer Brannon MD [Medical Doctor] - As Soon As Possible Additional Instructions: If you develop a fever, shortness of breath, chest pain, new or worsening symptoms - please call your PCP or go to the ED immediately. Your X-Ray shows a broken bone at the tip of your finger. This is considered an open fracture given the laceration of your nail. Take your antibiotic as prescribed. Please keep the dressing clean, dry, and intact until you see Orthopedics. Use the finger splint at all times. Please follow up with Orthopedics early next week for a recheck - Billing Disposition and Condition Condition: STABLE Disposition: Home
== END 2018-11-23 15:25 | disposition home or self-care (01) ==
LOC: UCEAST 14:06
DX: S62.634B Displaced fracture of distal phalanx of right ring finger, initial encounter for open fracture (principal); X58.XXXA Exposure to other specified factors, initial encounter; Y93.89 Activity, other specified; Y92.89 Other specified places as the place of occurrence of the external cause; Y99.0 Civilian activity done for income or pay
CPT/HCPCS: 73140; 99212; G0463